=== PATIENT | male | born 1990 | race Caucasian/White ===

== ENCOUNTER 2019-05-19 22:58 | Emergency (ER) | payer BC ==
[~2019-05-19] VITALS: Ht 180.3 cm; Wt 124.0 kg
[2019-05-19 23:04] VITALS: BP 149/87
--- NOTE | 2019-05-19 23:40 | NUR ---
Patient in room, RN to bedside. Medical student at bedside assessing patient. Patient appears well nourished, answers questions appropriately and concisely. Follows directions well. Midlevel provider to bedside, educating patient on the needs for washing toe. Right hallux is red, tender to the touch. Educated on the need for follow up. Awaiting orders.
== END 2019-05-19 23:55 | disposition home or self-care (01) ==
LOC: ED 23:49
DX: L03.031 Cellulitis of right toe (principal); L60.0 Ingrowing nail
CPT/HCPCS: 99283